=== PATIENT | male | born 1970 | race Caucasian/White ===

== ENCOUNTER → 2021-01-13 10:31 | Outpatient (CLI) | payer SELFPAY ==
--- NOTE | 2021-01-13 10:41 | DI.RAD.S_ITS ---
PROCEDURE: XR ANKLE RT MIN 3V INDICATIONS: RIGHT Ankle injury TECHNIQUE: 3 views of the ankle were acquired. COMPARISON: None. FINDINGS: Bones: No fractures or dislocations. Ankle mortise is normally aligned. No suspicious bony lesions. Soft tissues: No tibiotalar joint effusion. Achilles tendon appears normal. IMPRESSION: No acute findings. No fracture. If the patient's symptoms do not improve recommend followup radiographs in 10 days to assess for healing sclerosis/occult injury. Dictated by: Nabeel Ramirez M.D. on 01/13/2021 at 11:18 Approved by: Nabeel Ramirez M.D. on 01/13/2021 at 11:19
--- NOTE | 2021-01-13 12:32 | DI.RAD.S_ITS ---
PROCEDURE: XR FOOT RT MIN 3V INDICATIONS: Foot pain TECHNIQUE: 3 views of the foot were acquired. COMPARISON: None. FINDINGS: Bones: No acute fracture. Large ununited accessory navicular incidentally noted. Soft tissues: No tibiotalar joint effusion. Achilles tendon appears normal. IMPRESSION: No acute findings. If the patient's pain or other symptoms persist, consider further evaluation with MRI. Incidental large ununited accessory navicular. Dictated by: Nabeel Ramirez M.D. on 01/13/2021 at 13:09 Approved by: Nabeel Ramirez M.D. on 01/13/2021 at 13:11
== END ==
PROVIDERS: Referring Provider Physician Assistant; Visit Provider Physician Assistant
DX: M25.571 Pain in right ankle and joints of right foot (principal); M79.671 Pain in right foot
CPT/HCPCS: 73610; 73630

== ENCOUNTER → 2021-07-22 12:27 | Outpatient (CLI) | payer OTHER, SELFPAY ==
[2021-07-22 18:58] LABS: Add Manual Diff / Slide Review NO; Basophils Absolute Auto 100 /uL (0-100); Eosinophils Absolute Auto 100 /uL (0-450); Eosinophils Percent Auto 2.8 % (2-4); Hematocrit 42.6 % (41-53); Hemoglobin 14.9 g/dL (13.5-17.5); Lymphocytes Absolute Auto 1600 /uL (1100-4500); Lymphocytes Percent Auto 29.7 % (25-40); Mean Corpuscular HGB Conc 34.9 % (30-36); Mean Corpuscular Hemoglobin 29.2 PG (26-34); Mean Corpuscular Volume 83.5 fL (80-100); Monocytes Absolute Auto 300 /uL (0-900); Monocytes Percent Auto 4.8 % (3-14); Neutrophils Absolute Auto 3300 /uL (1500-7000); Neutrophils Percent Auto 61.7 % (50-75); Platelet Count 172 X10^3/uL (150-400); Red Cell Distribution Width 13.8 % (11.6-14.8); White Blood Cell Count 5.4 X10^3/uL (4.5-11.0)
[2021-07-22 19:00] LABS: Alanine Aminotransferase 76 IU/L (<50); Albumin 4.5 g/dL (3.5-5.0); Albumin Globulin Ratio 1.7 (1.0-2.8); Alkaline Phosphatase 63 U/L (38-126); Aspartate Aminotransferase 47 IU/L (17-59); BUN Creatinine Ratio 16.7 (6-22); Bilirubin Total 0.7 mg/dL (0.2-1.3); Blood Urea Nitrogen 13 mg/dL (9-20); Calcium 9.9 mg/dL (8.4-10.2); Carbon Dioxide 25 mmol/L (22-32); Chloride 102 mmol/L (98-107); Estimated Glomerular Filt Rate > 60 mL/min (>60); Globulin 2.6 g/dL (1.7-4.1); Glucose 202 mg/dL (70-100); HEMOLYSIS 32 (0-50); Potassium 4.6 mmol/L (3.4-5.1); Sodium 137 mmol/L (137-145); Total Protein 7.1 g/dL (6.3-8.2)
[2021-07-23 08:48] LABS: Hemoglobin A1C% w Est Avg Glu 6.6 % (4.0-6.0)
== END ==
PROVIDERS: PCP Family Medicine; Visit Provider Physician Assistant
DX: N23 Unspecified renal colic (principal); R30.0 Dysuria; R73.9 Hyperglycemia, unspecified
CPT/HCPCS: 80053; 83036; 85025; 87086

== ENCOUNTER → 2021-08-12 08:43 | Outpatient (CLI) | payer OTHER, SELFPAY ==
[2021-08-12 19:37] LABS: Cholesterol 228 mg/dL (140-199); HDL Cholesterol 35 mg/dL (40-60); LDL Cholesterol Calculated 116 mg/dL (<100); Triglycerides 383 mg/dL (35-150)
[2021-08-12 22:41] LABS: Creatinine Urine Random 315.9 mg/dL
[2021-08-12 22:45] LABS: Microalbumi Creatinin Ratio Ur 13.6 ug/mg CR (<30); Microalbumin Urine Random 4.3 mg/dL (0-1.6)
[2021-08-13 17:01] LABS: Hep C Virus Ab w/Reflex Quant NEGATIVE s/c (NEGATIVE)
== END ==
PROVIDERS: PCP Family Medicine; Visit Provider Family Medicine
DX: E78.2 Mixed hyperlipidemia (principal); E11.9 Type 2 diabetes mellitus without complications; R79.89 Other specified abnormal findings of blood chemistry
CPT/HCPCS: 80061; 82043; 82570; 86803

== ENCOUNTER → 2021-11-11 11:33 | Outpatient (CLI) | payer OTHER, SELFPAY ==
[2021-11-11 20:29] LABS: Alanine Aminotransferase 38 IU/L (<50); Albumin 4.9 g/dL (3.5-5.0); Albumin Globulin Ratio 1.8 (1.0-2.8); Alkaline Phosphatase 53 U/L (38-126); Aspartate Aminotransferase 24 IU/L (17-59); Bilirubin Total 0.8 mg/dL (0.2-1.3); Bilirubin Unconjugated 0.6 mg/dL (0.0-1.1); Globulin 2.7 g/dL (1.7-4.1); HEMOLYSIS < 15 (0-50); Total Protein 7.6 g/dL (6.3-8.2)
[2021-11-11 20:37] LABS: Hemoglobin A1C% w Est Avg Glu 5.6 % (4.0-6.0)
== END ==
PROVIDERS: PCP Family Medicine; Visit Provider Family Medicine
DX: E11.9 Type 2 diabetes mellitus without complications (principal); R79.89 Other specified abnormal findings of blood chemistry
CPT/HCPCS: 80076; 83036

== ENCOUNTER → 2022-04-07 13:05 | Outpatient (CLI) | payer OTHER, SELFPAY ==
[2022-04-07 19:41] LABS: BUN Creatinine Ratio 10.6 (6-22); Blood Urea Nitrogen 9 mg/dL (9-20); Calcium 9.9 mg/dL (8.4-10.2); Carbon Dioxide 22 mmol/L (22-32); Chloride 101 mmol/L (98-107); Estimated Glomerular Filt Rate > 60 mL/min (>60); Glucose 103 mg/dL (70-100); HEMOLYSIS < 15 (0-50); Potassium 4.1 mmol/L (3.4-5.1); Sodium 137 mmol/L (137-145)
[2022-04-07 20:42] LABS: Creatinine Urine Random 192.9 mg/dL
[2022-04-07 20:46] LABS: Microalbumi Creatinin Ratio Ur 10.8 ug/mg CR (<30); Microalbumin Urine Random 2.1 mg/dL (0-1.6)
== END ==
PROVIDERS: PCP Family Medicine; Visit Provider Family Medicine
DX: E11.9 Type 2 diabetes mellitus without complications (principal); E78.2 Mixed hyperlipidemia; F90.2 Attention-deficit hyperactivity disorder, combined type; I10 Essential (primary) hypertension; Z79.899 Other long term (current) drug therapy
CPT/HCPCS: 80048; 82043; 82570; 83036

== ENCOUNTER → 2022-09-02 11:33 | Outpatient (CLI) | payer OTHER, SELFPAY ==
[2022-09-02 20:14] LABS: Blood Urea Nitrogen 13 mg/dL (9-20); Cholesterol 245 mg/dL (140-199); Estimated Glomerular Filt Rate > 60 mL/min (>60); HDL Cholesterol 38 mg/dL (40-60)
[2022-09-02 20:26] LABS: Triglycerides 593 mg/dL (35-150)
[2022-09-02 20:50] LABS: Creatinine Urine Random 82.6 mg/dL
[2022-09-02 20:54] LABS: Microalbumi Creatinin Ratio Ur 8.4 ug/mg CR (<30); Microalbumin Urine Random 0.7 mg/dL (0-1.6)
[2022-09-02 21:26] LABS: Add Manual Diff / Slide Review NO; Basophils Absolute Auto 100 /uL (0-100); Basophils Percent Auto 1.3 % (0-2); Eosinophils Absolute Auto 100 /uL (0-450); Eosinophils Percent Auto 1.9 % (2-4); Hemoglobin 16.2 g/dL (13.5-17.5); Lymphocytes Absolute Auto 2200 /uL (1100-4500); Lymphocytes Percent Auto 30.7 % (25-40); Mean Corpuscular HGB Conc 35.2 % (30-36); Mean Corpuscular Volume 82.3 fL (80-100); Monocytes Absolute Auto 400 /uL (0-900); Neutrophils Absolute Auto 4500 /uL (1500-7000); Neutrophils Percent Auto 61.1 % (50-75); Red Blood Cell Count 5.59 X10^6/uL (4.5-5.9); Red Cell Distribution Width 14.1 % (11.6-14.8); White Blood Cell Count 7.3 X10^3/uL (4.5-11.0)
[2022-09-02 21:30] LABS: Platelet Count 242 X10^3/uL (150-400)
[2022-09-04 00:22] LABS: x Labcorp Estim. Avg Glu (eAG) 131 mg/dL (.); x Labcorp Hemoglobin A1c 6.2 % (4.8-5.6)
== END ==
PROVIDERS: PCP Family Medicine; Visit Provider Family Medicine
DX: E11.9 Type 2 diabetes mellitus without complications (principal); E78.2 Mixed hyperlipidemia; I10 Essential (primary) hypertension
CPT/HCPCS: 80061; 82043; 82565; 82570; 83036; 84520; 85025

== ENCOUNTER → 2022-12-29 09:20 | Outpatient (CLI) | payer OTHER, SELFPAY ==
[2022-12-29 19:37] LABS: Cholesterol 214 mg/dL (140-199); HDL Cholesterol 40 mg/dL (40-60); LDL Cholesterol Calculated 118 mg/dL (<100); Triglycerides 282 mg/dL (35-150)
[2022-12-29 20:40] LABS: Hemoglobin A1C% w Est Avg Glu 5.5 % (4.0-6.0)
== END ==
PROVIDERS: PCP Family Medicine; Visit Provider Family Medicine
DX: E11.9 Type 2 diabetes mellitus without complications (principal); E78.2 Mixed hyperlipidemia
CPT/HCPCS: 80061; 83036

== ENCOUNTER → 2023-06-07 11:00 | Outpatient (CLI) | payer OTHER, SELFPAY ==
--- NOTE | 2023-06-15 15:08 | DIAB.MNT ---
Initial Diabetes Medical Nutrition Therapy Assessment Name: Ezra Kelley Date: 06/07/23 Time: 1105a-12p Dx: Type II Diabetes Lyle presents for initial virtual visit using [employer] portal. He has agreed to receiving services via [facility] visit. 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 Really likes sugar, but limits. Difficulty with evening eating Trouble with sleeping. Use to work night time nanny. Previous bad marriage, could stay up alone. Now use to this. Shoulder pain. Use to work in [employer]. H/o pain management with meds, which helped with sleep/pain. Chats with Dr. Song each visit about pain management. H/o kidney stone hx Always has a salad at dinner Reduced fat intake Continues to lose wt on GLP1. Previous wt reported at 238#, had a goal of 200#, has surpassed this goal. Diet Recall: Wake: 7-8am Bed: 1a Diet Recall: 9a: [id number] hemp milk, berries 2-3c, protein, banana 1, spinach or leafy green 12-1p: 1/2-1 [place] (PBJ) +/- chips x 1 handful 6p: Salad OR lots of veggies, protein, starch (1/2c potatoes or pasta) +/- chewy flora candies 1-2 OR cookie 1 Beverages: water 5-6 x 16.9oz, 1c coffee, smoothie, reg flora marlen 2 cans per day or less Anthropometrics: Ht: 6'1 Wt: 189-192# reported Physical Activity: ADL with work, barrier is back and should pain Self-Monitoring Blood Glucose: None Diabetes Medications: Metformin 500mg Semaglutide 0.5mg Pertinent Labs: HgA1c: 5.5% 12/2022 6.2% 08/2022 Glucose 202mg/dl 07/2021 Past Medical History: chronic pain, ADHD, Insomnia, HTN, T2DM, H/o renal calculi Nutrition Rx: Carbohydrates: Meal:45g (60g max) Snack:15-30g Nutrition Diagnosis: - Food and nutrition related knowledge deficit r/t no previous MNT or Dm ed aeb pt report - Inconsistent CHO intake r/t limited food knowledge aeb diet recall indicating some high and low CHO meals - Physical inactivity r/t pain as a barrier aeb pt report Intervention: This participant was very receptive. Provided appropriate educational handouts. Discussed the following topics: Completed intake assessment. Discussed barriers to care. Pathophysiology of T2DM HgA1c, its correlation to blood glucose numbers, and rationale for goal Plate Method, impact of macronutrients on blood sugar, meal timing, carbohydrate counting, pairing macronutrients and spreading out carbohydrates for better blood glucose management Recommended servings for carbohydrates at meals and snacks Heart health nutrition Brainstormed appropriate meal/snack/smoothie based on food preferences Role of physical activity and barriers Created SMART goals for patient self-care and success. Goals: Ask about sugar free flora marlen Chat with Dr. Song regarding pain management Reduce carbs in smoothie Follow-up: TOMASZ ALEJANDRO follow-up in 4-6 weeks Lidya Hodge RDN, JAVON Certified Diabetes Care and Airconditioning Drafting Officer P: [phone] Thank you for this referral
== END ==
PROVIDERS: PCP Family Medicine; Referring Provider Family Medicine
DX: E11.9 Type 2 diabetes mellitus without complications (principal); Z79.84 Long term (current) use of oral hypoglycemic drugs; Z79.85 Long-term (current) use of injectable non-insulin antidiabetic drugs; Z71.3 Dietary counseling and surveillance
CPT/HCPCS: 97802

== ENCOUNTER → 2023-07-06 09:25 | Outpatient (CLI) | payer OTHER, SELFPAY ==
[2023-07-06 19:53] LABS: Hemoglobin A1C% w Est Avg Glu 5.1 % (4.0-6.0)
[2023-07-06 19:56] LABS: BUN Creatinine Ratio 13.5 (6-22); Blood Urea Nitrogen 12 mg/dL (9-20); Calcium 9.6 mg/dL (8.4-10.2); Carbon Dioxide 29 mmol/L (22-32); Chloride 104 mmol/L (98-107); Cholesterol 174 mg/dL (140-199); Estimated Glomerular Filt Rate > 60 mL/min (>60); Glucose 96 mg/dL (70-100); HDL Cholesterol 42 mg/dL (40-60); HEMOLYSIS < 15 (0-50); LDL Cholesterol Calculated 100 mg/dL (<100); Potassium 4.1 mmol/L (3.4-5.1); Sodium 139 mmol/L (137-145); Triglycerides 162 mg/dL (35-150)
== END ==
PROVIDERS: PCP Family Medicine; Visit Provider Family Medicine
DX: E11.9 Type 2 diabetes mellitus without complications (principal); Z79.899 Other long term (current) drug therapy; F90.2 Attention-deficit hyperactivity disorder, combined type; I10 Essential (primary) hypertension; E78.2 Mixed hyperlipidemia
CPT/HCPCS: 80048; 80061; 83036

== ENCOUNTER → 2024-03-30 09:17 | Outpatient (CLI) | payer OTHER, SELFPAY ==
[2024-03-30 19:04] LABS: BUN Creatinine Ratio 16.7 (6-22); Blood Urea Nitrogen 15 mg/dL (9-20); Calcium 10.4 mg/dL (8.4-10.2); Carbon Dioxide 24 mmol/L (22-32); Chloride 103 mmol/L (98-107); Cholesterol 210 mg/dL (140-199); Estimated Glomerular Filt Rate > 60 mL/min (>60); Glucose 96 mg/dL (70-100); HDL Cholesterol 42 mg/dL (40-60); HEMOLYSIS 20 (0-50); LDL Cholesterol Calculated 102 mg/dL (<100); Potassium 4.3 mmol/L (3.4-5.1); Sodium 138 mmol/L (137-145); Triglycerides 332 mg/dL (35-150)
[2024-03-30 19:09] LABS: Hemoglobin A1C% w Est Avg Glu 5.3 % (4.0-6.0)
[2024-03-30 19:30] LABS: Add Manual Diff / Slide Review NO; Basophils Absolute Auto 0 /uL (0-100); Basophils Percent Auto 0.4 % (0-2); Eosinophils Absolute Auto 300 /uL (0-450); Hematocrit 46.9 % (41-53); Hemoglobin 16.5 g/dL (13.5-17.5); Lymphocytes Absolute Auto 2200 /uL (1100-4500); Lymphocytes Percent Auto 22.5 % (25-40); Mean Corpuscular HGB Conc 35.2 % (30-36); Mean Corpuscular Hemoglobin 29.6 PG (26-34); Mean Corpuscular Volume 84.3 fL (80-100); Monocytes Absolute Auto 400 /uL (0-900); Neutrophils Absolute Auto 6800 /uL (1500-7000); Neutrophils Percent Auto 70.1 % (50-75); Platelet Count 230 X10^3/uL (150-400); Red Blood Cell Count 5.57 X10^6/uL (4.5-5.9); White Blood Cell Count 9.7 X10^3/uL (4.5-11.0)
[2024-03-30 19:44] LABS: Creatinine Urine Random 189.04 mg/dL
[2024-03-30 19:54] LABS: Microalbumin Urine Random 0.9 mg/dL (0-1.6)
== END ==
PROVIDERS: PCP Family Medicine; Visit Provider Family Medicine
DX: F90.2 Attention-deficit hyperactivity disorder, combined type (principal); Z79.899 Other long term (current) drug therapy; E11.9 Type 2 diabetes mellitus without complications; E78.2 Mixed hyperlipidemia; I10 Essential (primary) hypertension
CPT/HCPCS: 80048; 80061; 82043; 82570; 83036; 85025

== ENCOUNTER → 2024-09-04 09:03 | Outpatient (CLI) | payer OTHER, SELFPAY ==
[2024-09-04 19:21] LABS: Add Manual Diff / Slide Review NO; Hematocrit 44.2 % (41-53); Hemoglobin 15.6 g/dL (13.5-17.5); Lymphocytes Absolute Auto 1800 /uL (1100-4500); Mean Corpuscular HGB Conc 35.4 % (30-36); Mean Corpuscular Hemoglobin 29.9 PG (26-34); Mean Corpuscular Volume 84.5 fL (80-100); Platelet Count 201 X10^3/uL (150-400)
[2024-09-04 19:31] LABS: Hemoglobin A1C% w Est Avg Glu 5.4 % (4.0-6.0)
[2024-09-04 20:52] LABS: Blood Urea Nitrogen 14 mg/dL (9-20); Calcium 9.9 mg/dL (8.4-10.2); Carbon Dioxide 26 mmol/L (22-32); Chloride 102 mmol/L (98-107); Cholesterol 171 mg/dL (140-199); Estimated Glomerular Filt Rate > 60 mL/min (>60); Glucose 100 mg/dL (70-99); HDL Cholesterol 38 mg/dL (40-60); HEMOLYSIS 18 (0-50); Potassium 4.2 mmol/L (3.4-5.1); Sodium 136 mmol/L (137-145); Triglycerides 141 mg/dL (35-150)
== END ==
PROVIDERS: PCP Family Medicine; Visit Provider Family Medicine
DX: Z12.5 Encounter for screening for malignant neoplasm of prostate (principal); F90.2 Attention-deficit hyperactivity disorder, combined type; Z68.30 Body mass index [BMI] 30.0-30.9, adult; Z79.899 Other long term (current) drug therapy; E11.9 Type 2 diabetes mellitus without complications; E78.2 Mixed hyperlipidemia; I10 Essential (primary) hypertension
CPT/HCPCS: 80048; 80061; 83036; 85025; G0103